=== PATIENT | female | born 1960 | race Caucasian/White ===

== ENCOUNTER → 2022-06-25 | Outpatient (CLI) | payer BC | END | disposition home or self-care (01) | LOC: RAH 15:03 | PROVIDERS: ATTEND Internal Medicine | DX: J98.11 Atelectasis (principal); I25.10 Atherosclerotic heart disease of native coronary artery without angina pectoris; K44.9 Diaphragmatic hernia without obstruction or gangrene; M47.815 Spondylosis without myelopathy or radiculopathy, thoracolumbar region; M33.90 Dermatopolymyositis, unspecified, organ involvement unspecified | CPT/HCPCS: 71250 ==

== ENCOUNTER → 2022-07-03 | Outpatient (CLI) | payer BC | END | disposition home or self-care (01) | LOC: RAH 13:18 | PROVIDERS: ATTEND Internal Medicine | DX: I07.1 Rheumatic tricuspid insufficiency (principal); I31.39 Other pericardial effusion (noninflammatory); M33.90 Dermatopolymyositis, unspecified, organ involvement unspecified | CPT/HCPCS: 93306 ==